=== PATIENT | male | born 1945 | race Caucasian/White ===

== ENCOUNTER → 2016-12-26 | Outpatient (CLI) | payer MEDICARE, OTHER ==
[~2016-12-26] MED LIST: METF500T PO
[2016-12-26 11:06] LABS: AUTOMATED NEUTROPHIL # 3.2 TH/MM3 (1.8-7.7); BASOPHIL % 0.7 % (0.0-2.0); EOSINOPHIL # 0.3 TH/MM3 (0-0.4); EOSINOPHIL % 5.2 % (0.0-4.0); HEMATOCRIT 44.3 % (39.0-51.0); HEMO FLAGS DIFF FINAL; LYMPH % 34.3 % (9.0-44.0); LYMPHOCYTE # 2.1 TH/MM3 (1.0-4.8); MEAN CELL VOLUME 90.1 FL (80.0-100.0); MEAN CORPUSCULAR HEMOGLOBIN 31.2 PG (27.0-34.0); MEAN CORPUSCULAR HGB CONC 34.7 % (32.0-36.0); MONO % 7.2 % (0.0-8.0); NEUT % 52.6 % (16.0-70.0); PLATELET COUNT 134 TH/MM3 (150-450); RED BLOOD COUNT 4.91 MIL/MM3 (4.50-5.90); RED CELL DISTRIBUTION WIDTH 12.8 % (11.6-17.2)
[2016-12-26 11:13] LABS: BLOOD, URINE NEG (NEG); GLUCOSE,URINE NEG (NEG); KETONE, URINE NEG (NEG); NITRITE,URINE NEG (NEG); PH, URINE 6.5 (5.0-8.5); URINE COLOR YELLOW (YELLW/STRAW)
[2016-12-26 11:20] LABS: COMMENT (UR) CULT NOT INDICATED; CULTURE IF INDICATED CULT NOT INDICATED
[2016-12-26 11:25] LABS: BICARBONATE 27.2 MEQ/L (21.0-32.0); POTASSIUM 3.9 MEQ/L (3.5-5.1)
--- NOTE | 2016-12-26 12:08 | RADRPT ---
EXAM DATE/TIME: 12/26/2016 11:14 [place] COMPARISON: No previous studies available for comparison. INDICATIONS : Evaluate for pneumonia, pneumothorax and communicable diseases. Pre-op knee surgery MEDICAL HISTORY : Diabetes mellitus type I. SURGICAL HISTORY : None. ENCOUNTER: Initial ACUITY: 1 day PAIN SCORE: 0/10 LOCATION: chest FINDINGS: PA and lateral views of the chest demonstrate the lungs to be symmetrically aerated without evidence of mass, infiltrate or effusion. The cardiomediastinal contours are unremarkable. Osseous structure s are intact. CONCLUSION: 1. No acute cardiopulmonary findings. Hugo Solares MD on December 26, 2016 at 12:06 Board Certified Radiologist. This report was verified electronically.
--- NOTE | 2016-12-26 14:33 | EKG ---
Date Performed: 12/26/2016 Time Performed: 10:17:28 PTAGE: 71 years EKG: Sinus rhythm WITH FIRST DEGREE AV BLOCK MARKED LEFT AXIS DEVIATION PATTERN CONSISTENT WITH PULMONARY DISEASE ABNO RMAL ECG NO PREVIOUS TRACING DOCTOR: Art Adam Interpretating Date/Time 12/26/2016 14:31:53
== END ==
LOC: CPRE 10:03
PROVIDERS: ATTEND Orthopaedic Surgery
DX: Z01.810 Encounter for preprocedural cardiovascular examination (principal); Z01.811 Encounter for preprocedural respiratory examination; Z01.812 Encounter for preprocedural laboratory examination; R94.31 Abnormal electrocardiogram [ECG] [EKG]; S83.232A Complex tear of medial meniscus, current injury, left knee, initial encounter; X58.XXXA Exposure to other specified factors, initial encounter
CPT/HCPCS: 36415; 71020; 80048; 81001; 85025; 85610; 93005

== ENCOUNTER 2017-01-29 07:33 | Day surgery (SDC) | payer MEDICARE, OTHER ==
[~2017-01-29] VITALS: Ht 175.3 cm; Wt 93.5 kg
[2017-01-29] MEDS ORDERED: IOHEXOL 350 MG/ML 100 ML BTL (for Cath Lab) OTHER ONE (07:34)
[2017-01-29] MEDS ORDERED: ASPIRIN 325 MG TAB PO SCH (08:00)
[2017-01-29] MEDS ORDERED: NS 1000P @30 MLS/HR (KVO) IV SCH (08:00)
[2017-01-29] MEDS ORDERED: TOPR25TA PO (08:08)
[2017-01-29 08:19] LABS: AUTOMATED NEUTROPHIL # 2.8 TH/MM3 (1.8-7.7); BASOPHIL # 0.1 TH/MM3 (0-0.2); BASOPHIL % 0.9 % (0.0-2.0); EOSINOPHIL # 0.4 TH/MM3 (0-0.4); EOSINOPHIL % 6.4 % (0.0-4.0); HEMATOCRIT 45.3 % (39.0-51.0); HEMOGLOBIN 15.8 GM/DL (13.0-17.0); LYMPH % 39.7 % (9.0-44.0); LYMPHOCYTE # 2.4 TH/MM3 (1.0-4.8); MEAN CELL VOLUME 89.2 FL (80.0-100.0); MEAN CORPUSCULAR HEMOGLOBIN 31.2 PG (27.0-34.0); MEAN CORPUSCULAR HGB CONC 34.9 % (32.0-36.0); MONO % 6.8 % (0.0-8.0); MONOCYTE # 0.4 TH/MM3 (0-0.9); NEUT % 46.2 % (16.0-70.0); PLATELET COUNT 136 TH/MM3 (150-450); RED BLOOD COUNT 5.08 MIL/MM3 (4.50-5.90); RED CELL DISTRIBUTION WIDTH 13.2 % (11.6-17.2); WHITE BLOOD COUNT 6.1 TH/MM3 (4.0-11.0)
[2017-01-29 08:21] VITALS: BP 147/112; PULSE 58; RESP 17; TEMP 98.8; O2SAT 97
[2017-01-29 08:28] LABS: PROTHROMBIN TIME - PATIENT 11.1 SEC (9.8-11.6)
[2017-01-29 08:35] LABS: BICARBONATE 25.7 MEQ/L (21.0-32.0); CREATININE 1.15 MG/DL (0.60-1.30)
[2017-01-29] MEDS ORDERED: HEPARIN-NS/PF INJ 1,000 ML ONE (09:51)
[2017-01-29] MEDS ORDERED: MIDAZOLAM HCL 2 MG/2 ML VIAL ONE (09:51)
[2017-01-29] MEDS ORDERED: HEPARIN SODIUM - IV 10,000 UNITS/10 ML VIAL ONE (09:53)
--- NOTE | 2017-01-29 11:04 | CATHPROC ---
[employer] HIS Report Study Information Study Number Admission Scheduled Start Study Start [id number] Jan 29 2017 7:33AM 01/29/2017 Jan 29 2017 9:48AM [place] [facility] Cardiac Catheterization Admit Source Facility Department Other [facility] - [facility] Geologist Physician and Clinical Staff Initial Francisco Rayo Senior Net Application Developer Adriana Simpson RN Recorder Erna Mireles,RT(R) Scrub Anibal, Etelvina,FIELD MAP TECHNICIAN TECH2 Procedures Performed Procedure Location (Site) Vessel Name Coronary Angiograms LCA Left Coronary Coronary Angiograms RCA Right Coronary L Heart Cath Wire insertion Fem Art (right) Femoral Art Equipment Time Hospice Fellow Description Size Mfg Part Number Used/Scraped TRANSDUCER, TRUWAVE [id number] 10:07 HOLLOWAY BRUNO * Used W/STOCKCOCK *[id number] *[id number] [id number] *[id number] [id number] *[id number] [id number] *[id number] [id number] *[id number] 10:07 VANCL IND[employer]RIES PACK, CCL CUSTOM * Used *[id number] 10:07 Tier 1 Performance MEDICAL SHEATH, FR5.5 PRELUDE 11CM FR 5 [id number] Used [id number] 10:07 Spectralmind WIRE, 3MMJ .035 180CM 180CM Used *[id number] 10:07 NAMIC MANIFOLD, 4 PORT * Used *[id number] 10:07 NYCOMED OMNIPAQUE, 350 MG, 150ML 150ML [id number] Used [id number] 10:07 On The Bill BLANKET,WARM AIR CCL * Used *[id number] History: Allergies Allergy Reaction No Known Allergies History: Risk Factors Family History of Hypertension Dyslipidemia Previous MA Previous Heart Failure Premature CAD Yes No No No No Prior Valve Prior PCI Prior CABG Surgery No No No Cerebrovascular Peripheral Artery Chronic Lung On Dialysis Diabetes Diabetes Therapy Disease Disease Disease No No No No Yes Oral History: Stress Tests Stress or Imaging Studies Performed Yes Standard Exercise Stress Test No Stress Echo No Stress Test SPECT Stress Test SPECT Result Yes Negative Stress Test CMR No Cardiac CTA Coronary Calcium Score No No History: Other Disease Selection Items HTN History: Other Current Smoker Yes Labs Hgb (g/dl) Hct (%) RBC (MIL/MM3) WBC (l/cumm) Platelets (thousands) 11.60-17.00 35.00-51.00 4.00-5.90 4.00-11.00 150.00-450.00 15.0 45 5 6.1 136 Glucose (mg/dl) BUN (mg/dl) Creatinine (mg/dl) BUN:Creatinine (1:x) 74.00-106.00 7.00-18.00 0.50-1.30 10.00-20.00 145 13 1.2 10.8 Na (meq/l) K (meq/l) 136.00-145.00 3.50-5.10 138 4 CPK-MB (ng/ML) 0.50-3.60 Not Drawn Medication Medication Total Dose (Bolus/Oral) Medication Total Dosage/Unit 1% XYLOCAINE 20 mL FENTANYL 50 mcg VERSED 0.5 mg Medications (Bolus/Oral) Medication Time Given Dosage/Unit Administered By Reason 01/29/2017 10:10:21 FENTANYL 50 mcg Adriana Simpson AM 50 mcg FENTANYL given in lab by Adriana Simpson, [place] via Peripheral IV. 01/29/2017 10:11:09 1% XYLOCAINE 20 mL Francisco Soto AM 20 mL 1% XYLOCAINE given in lab by Francisco Soto in Right Groin via Subcutaneous. 01/29/2017 10:11:12 VERSED 0.5 mg Adriana Simpson AM 0.5 mg VERSED given in lab by Adriana Simpson, [place] via Peripheral IV. Medication (Drip) Medication Time Given Dosage/Unit Concentration/Unit Diluent (ml) Solution IV Solutions 01/29/2017 9:56:14 AM 0 mL (IV) 500 NaCl .9 Patient arrived on IV Solutions in Left Forearm via Peripheral IV. Pump/Drip Flow = 20 ml/hr using Na Cl .9. Initial Case Assessment Cardiovascular HR Rhythm NIBP Chest Pain 75 reg 171/90 0 Edema Present Skin color Skin None Normal Warm Circulatory - Right Pulses Dorsalis Pedis Femoral 2 2 Scale (0,1,2,3,4,d) Circulatory - Left Pulses Dorsalis Pedis Femoral 2 2 Scale (0,1,2,3,4,d) Circulatory - Lower Extremities Color Lower Right Color Lower Left Normal Normal Neurological State Oriented to time-place- Alert Moves all extremities person Respiration - General Respiration Rate SpO2 (%) (B/min) 15 96 Final Case Assessment Cardiovascular HR Rhythm NIBP Chest Pain 56 REG 154/104 0 Edema Present Skin color Skin None Normal Warm Circulatory - Right Pulses Dorsalis Pedis Femoral 2 2 Scale (0,1,2,3,4,d) Circulatory - Left Pulses Dorsalis Pedis Femoral 2 2 Scale (0,1,2,3,4,d) Circulatory - Lower Extremities Color Lower Right Color Lower Left Normal Normal Neurological State Oriented to time-place- Alert Moves all extremities person Respiration - General Respiration Rate SpO2 (%) (B/min) 19 97 Chronological Log Time Study Chronological Log 9:48:05 Patient arrived via Bed. 9:48:06 Patient Name, D.O.B, / Armband Verified By R.N. 9:48:07 Consent signed by the physician and the patient and verified by the Mine Geologist staff. 9:48:07 Pre-op and post- op instructions given; patient acknowledges understanding of instructions. 9:48:08 Verbal Stimulation=2 Physical Stimulation=2 Airway=2 Respiration=2 TOTAL=8. (0=absent, 1=li mited, 2=present) 9:48:11 Patient has been NPO for Less than 6Hrs. 9:48:12 Skin Breakdown-NONE 9:48:13 Patient Warmer Placed on the Table. 9:56:03 A # 20 IV was noted in the Forearm (left). Grade = 0 9:56:14 Patient arrived on IV Solutions in Left Forearm via Peripheral IV. Pump/Drip Flow = 20 ml/h r using NaCl .9. 9:56:33 History and physical on the chart or being dictated. Assessment: Initial Case, HR=75 BPM, Rhythm=reg, MIIF=371/90 mmhg, Chest Pain=0, Edema=None, Co rosales=Normal, Skin = Warm Right Pulses: Norman Ped=2, Femoral=2 Left Pulses: Norman Ped=2, Femoral=2 9:56:33 Lower Right Extremities: Color=Normal Lower Left Extremities: Color=Normal Neurological: State=Alert, Ox3, MIRANDA Respiration: Resp=15 B/min, SpO2=96 % 9:56:36 Reference ECG taken Vitals capture started with the following parameters, Patient=Adult, Interval=2 min, Initial Pr uicnjr=386 mmHg, 9:56:41 Deflation Rate=5 mmHg, Cuff placed on Left Arm 9:57:58 HR=61 bpm, AHZZ=502/110 mmhg, SpO2=96.0 %, Resp=1 B/min, Pain=0, Lucas=10, Hdez=2 9:59:24 HR=64 bpm, LNGC=237/119 mmhg, SpO2=98.0 %, Resp=18 B/min, Pain=0, Lucas=10, Hdez=2 10:01:20 HR=62 bpm, BAYT=641/117 mmhg, SpO2=99.0 %, Resp=13 B/min, Pain=0, Lucas=10, Hdez=2 10:03:12 MD arrived. 10:03:16 Bilateral groins prepped with 2% chlorhexidine, and draped after a 3 minute waiting time. 10:03:21 HR=67 bpm, UMCX=929/109 mmhg, SpO2=98.0 %, Resp=10 B/min, Pain=0, Lucas=10, Hdez=2 10:04:57 Pressure channel 1 zeroed. 10:05:24 HR=69 bpm, EGWG=807/109 mmhg, SpO2=96.0 %, Resp=10 B/min, Pain=0, Lucas=10, Hdez=2 10:07:23 HR=68 bpm, NCET=519/108 mmhg, SpO2=98.0 %, Resp=10 B/min, Pain=0, Lucas=10, Hdez=2 10:09:22 HR=62 bpm, KUGS=907/105 mmhg, SpO2=95.0 %, Resp=10 B/min, Pain=0, Lucas=10, Hdez=2 10:10:21 50 mcg FENTANYL given in lab by Adriana Simpson, [place] via Peripheral IV. Time Out. Correct patient, correct procedure, correct physician, power injector not loaded with contrast with surgical 10:10:52 team present. Time Out Concurred by MD and individual staff in procedure. 10:10:59 Case Start 10:11:00 Verbal Stimulation=2 Physical Stimulation=2 Airway=2 Respiration=2 TOTAL=8. (0=absent, 1=li mited, 2=present) 10:11:09 20 mL 1% XYLOCAINE given in lab by Francisco Soto in Right Groin via Subcutaneous. 10:11:12 0.5 mg VERSED given in lab by Adriana Simpson, [place] via Peripheral IV. 10:11:21 HR=63 bpm, RSFX=997/122 mmhg, SpO2=96.0 %, Resp=10 B/min, Pain=0, Lucas=10, Hdez=2 10:13:23 HR=62 bpm, MDHY=309/110 mmhg, SpO2=97.0 %, Resp=12 B/min, Pain=0, Lucas=10, Hdez=2 10:14:50 Access site was Right Femoral Artery. MP KIT 10:14:56 A wire was inserted via Fem Art (right). 10:15:10 A SHEATH, FR5.5 PRELUDE 11CM FR 5 was advanced into the Fem Art (right) using the Percutane ous technique. 10:15:24 HR=62 bpm, MJBI=739/113 mmhg, SpO2=98.0 %, Resp=5 B/min, Pain=0, Lucas=10, Hdez=2 Recorded Pressure: Ao, HR=62, Condition=Condition 1 10:16:11 (Aorta) Ao 157/89/116 10:16:39 An injection in the Fem Art (right) was made through the SHEATH, FR5.5 PRELUDE 11CM FR 5. 10:17:23 HR=61 bpm, RIOY=665/105 mmhg, SpO2=95.0 %, Resp=9 B/min, Pain=0, Lucas=10, Hdez=2 A JR 4.0 INFINITI CATHETER FR 5 was advanced over a wire. OMNIPAQUE, 350 MG, 150ML 150ML was us ed for 10:17:54 injections. 10:19:22 HR=60 bpm, PMXJ=339/103 mmhg, SpO2=95.0 %, Resp=9 B/min, Pain=0, Lucas=10, Hdez=2 Recorded Pressure: LV, Ao, HR=60, Condition=Condition 1 10:19:27 (Left Ventricle) LV 144/29/27, (Aorta) Ao 144/88/112 10:19:58 The RCA was injected and visualized at various angles. OMNIPAQUE, 350 MG, 150ML 150ML used . 10:21:21 HR=61 bpm, COTS=952/106 mmhg, SpO2=94.0 %, Resp=7 B/min, Pain=0, Lucas=10, Hdez=2 After removing the current catheter a JL 5.0 INFINITI CATHETER FR 5 was advanced over a WIRE, 3 MMJ .035 180CM 10:22:04 180CM. 10:23:21 HR=60 bpm, VOFS=796/105 mmhg, SpO2=94.0 %, Resp=5 B/min After removing the current catheter a JL 6.0 INFINITI CATHETER FR 5 was advanced over a WIRE, 3 MMJ .035 180CM 10:23:22 180CM. 10:25:22 HR=59 bpm, OKSB=549/102 mmhg, SpO2=94.0 %, Resp=10 B/min, Pain=0, Lucas=10, Hdez=2 10:26:24 A WIRE, 3MMJ .035 180CM 180CM was inserted via Fem Art (right). 10:27:21 HR=58 bpm, ZTOV=847/100 mmhg, SpO2=93.0 %, Resp=10 B/min, Pain=0, Lucas=10, Hdez=2 10:29:24 HR=58 bpm, DJGL=723/101 mmhg, SpO2=94.0 %, Resp=11 B/min, Lucas=10 After removing the current catheter a MPA-2 INFINITI CATHETER FR 5 was advanced over a WIRE, 3M MJ .035 180CM 10:29:58 180CM. 10:31:25 HR=56 bpm, RPND=110/102 mmhg, SpO2=94.0 %, Resp=12 B/min, Lucas=10 10:33:21 The LCA was injected and visualized at various angles. OMNIPAQUE, 350 MG, 150ML 150ML used . 10:33:22 HR=55 bpm, MFMC=676/104 mmhg, SpO2=94.0 %, Resp=11 B/min, Pain=0, Lucas=10 After removing the current catheter a PIGTAIL ANG. INFINITI CATHETER FR 5 was advanced over a W PATI, 3MMJ .035 10:35:15 180CM 180CM. 10:35:22 HR=56 bpm, BUDL=689/104 mmhg, SpO2=94.0 %, Resp=13 B/min, Pain=0, Lucas=10 10:37:21 HR=58 bpm, VUIO=849/105 mmhg, SpO2=95.0 %, Resp=13 B/min, Pain=0, Lucas=10 10:38:15 Catheter was removed 10:39:24 HR=56 bpm, NZCG=253/104 mmhg, SpO2=95.0 %, Resp=3 B/min, Pain=0, Lucas=10, Hdez=2 10:39:38 Sheath removed; pressure applied to access site. T ANIBAL Assessment: Final Case, HR=56 BPM, Rhythm=REG, AGKR=683/104 mmhg, Chest Pain=0, Edema=None, Color=Normal, Skin = Warm Right Pulses: Norman Ped=2, Femoral=2 Left Pulses: Norman Ped=2, Femoral=2 10:39:45 Lower Right Extremities: Color=Normal Lower Left Extremities: Color=Normal Neurological: State=Alert, Ox3, MIRANDA Respiration: Resp=19 B/min, SpO2=97 % 10:40:33 Catheter(s) removed without difficulty 10:40:37 Case End 10:40:39 Sterile dressing applied to site 10:40:40 No case complications noted. 10:40:44 Cine recording checked. 10:41:23 HR=55 bpm, VIZQ=665/102 mmhg, SpO2=96.0 %, Resp=10 B/min, Pain=0, Lucas=10, Hdez=2 10:43:24 HR=58 bpm, BROM=424/112 mmhg, SpO2=96.0 %, Resp=14 B/min, Pain=0, Lucas=10, Hdez=2 10:45:25 HR=56 bpm, WEZV=586/125 mmhg, SpO2=96.0 %, Resp=22 B/min, Pain=0, Lucas=10, Hdez=2 10:46:46 Bedside Report will be given. 10:46:49 Contrast Scanned 10:47:19 A Left Heart Cath was performed. 10:47:25 HR=58 bpm, JVQW=534/115 mmhg, SpO2=96.0 %, Resp=8 B/min, Pain=0, Lucas=10, Hdez=2 10:50:07 HR=58 bpm, JCTA=697/110 mmhg, SpO2=96.0 %, Resp=14 B/min, Pain=0, Lucas=10, Hdez=2 10:51:29 HR=56 bpm, PZDR=784/113 mmhg, SpO2=96.0 %, Resp=16 B/min, Pain=0, Lucas=10, Hdez=2 10:53:28 HR=56 bpm, FGCM=735/107 mmhg, SpO2=97.0 %, Resp=16 B/min, Pain=0, Lucas=10, Hdez=2 10:55:21 HR=56 bpm, OAPY=615/108 mmhg, SpO2=98.0 %, Resp=10 B/min, Pain=0, Lucas=10, Hdez=2 10:57:23 HR=54 bpm, TMNS=034/106 mmhg, SpO2=98.0 %, Resp=14 B/min, Pain=0, Lucas=10, Hdez=2 10:59:51 Sheath removed; pressure applied to access site. 10:59:56 Case End 10:59:59 Sterile dressing applied to site 11:00:06 No case complications noted. 11:00:11 HR=52 bpm, HAAD=814/112 mmhg, SpO2=98.0 %, Resp=11 B/min, Pain=0, Hdez=2 11:00:42 Cine recording checked. 11:01:41 Bedside Report will be given. 11:01:44 Holding Area notified of successful diagnostic cath. End Study - Contrast Media Used In Study Contrast Total Opened (mL) Total Used (mL) Total Wasted (mL) Omnipaque 60 60 0 End Study - Maximum Contrast Load Max Contrast Load (mL) 389.6 End Study - Radiation Exposure Fluoro Time (minutes) 10.1 End Study - Sheaths Sheaths Pulled By Sheath Hold Time (min) Etelvina Barnett End Study - Patient Disposition Complications Transferred To Interventional Outcome No Outpatient Bed No attempt made
--- NOTE | 2017-01-29 11:04 | CATHPROC ---
Contrib HIS Report Study Information Study Number Admission Scheduled Start Study Start [id number] Jan 29 2017 7:33AM 01/29/2017 Jan 29 2017 9:48AM [place] [facility] Catheterization Admit Source Facility Department Other [facility] - Air Export Operations Agent Physician and Clinical Staff Initial Francisco Rayo [employer] Products Viewer Adriana Simpson RN Recorder Erna Mierles,RT(R) Scrub Anibal, Etelvina,CAR KNOCKER TECH2 Procedures Performed Procedure Location (Site) Vessel Name Coronary Angiograms LCA Left Coronary Coronary Angiograms RCA Right Coronary L Heart Cath Wire insertion Fem Art (right) Femoral Art Equipment Time Ship Design Teacher Description Size Mfg Part Number Used/Scraped TRANSDUCER, TRUWAVE [id number] 10:07 HOLLOWAY BRUNO * Used W/STOCKCOCK *[id number] 534-524T *[id number] 534-521T *[id number] [id number] *[id number] [id number] *[id number] [id number] *[id number] 10:07 [employer]ES PACK, CCL CUSTOM * Used *[id number] 10:07 [employer] MEDICAL SHEATH, FR5.5 PRELUDE 11CM FR 5 [id number] Used [id number] 10:07 [employer] WIRE, 3MMJ .035 180CM 180CM Used *[id number] 10:07 [employer] MANIFOLD, 4 PORT * Used *[id number] 10:07 [employer] OMNIPAQUE, 350 MG, 150ML 150ML [id number] Used [id number] 10:07 [place] [employer] BLANKET,WARM AIR CCL * Used *[id number] History: Allergies Allergy Reaction No Known Allergies History: Risk Factors Family History of Hypertension Dyslipidemia Previous [place] Previous Heart Failure Premature CAD Yes No No No No Prior Valve Prior PCI Prior CABG Surgery No No No Cerebrovascular Peripheral Artery Chronic Lung On Dialysis Diabetes Diabetes Therapy Disease Disease Disease No No No No Yes Oral History: Stress Tests Stress or Imaging Studies Performed Yes Standard Exercise Stress Test No Stress Echo No Stress Test SPECT Stress Test SPECT Result Yes Negative Stress Test CMR No Cardiac CTA Coronary Calcium Score No No History: Other Disease Selection Items HTN History: Other Current Smoker Yes Labs Hgb (g/dl) Hct (%) RBC (MIL/MM3) WBC (l/cumm) Platelets (thousands) 11.60-17.00 35.00-51.00 4.00-5.90 4.00-11.00 150.00-450.00 15.0 45 5 6.1 136 Glucose (mg/dl) BUN (mg/dl) Creatinine (mg/dl) BUN:Creatinine (1:x) 74.00-106.00 7.00-18.00 0.50-1.30 10.00-20.00 145 13 1.2 10.8 Na (meq/l) K (meq/l) 136.00-145.00 3.50-5.10 138 4 CPK-MB (ng/ML) 0.50-3.60 Not Drawn Medication Medication Total Dose (Bolus/Oral) Medication Total Dosage/Unit 1% XYLOCAINE 20 mL FENTANYL 50 mcg VERSED 0.5 mg Medications (Bolus/Oral) Medication Time Given Dosage/Unit Administered By Reason 01/29/2017 10:10:21 FENTANYL 50 mcg Adriana Simpson AM 50 mcg FENTANYL given in lab by Adriana Simpson, MILTON via Peripheral IV. 01/29/2017 10:11:09 1% XYLOCAINE 20 mL Francisco Soto AM 20 mL 1% XYLOCAINE given in lab by Francisco Soto in Right Groin via Subcutaneous. 01/29/2017 10:11:12 VERSED 0.5 mg Adriana Simpson AM 0.5 mg VERSED given in lab by Adriana Simpson, [place]TON via Peripheral IV. Medication (Drip) Medication Time Given Dosage/Unit Concentration/Unit Diluent (ml) Solution IV Solutions 01/29/2017 9:56:14 AM 0 mL (IV) 500 NaCl .9 Patient arrived on IV Solutions in Left Forearm via Peripheral IV. Pump/Drip Flow = 20 ml/hr using Na Cl .9. Initial Case Assessment Cardiovascular HR Rhythm NIBP Chest Pain 75 reg 171/90 0 Edema Present Skin color Skin None Normal Warm Circulatory - Right Pulses Dorsalis Pedis Femoral 2 2 Scale (0,1,2,3,4,d) Circulatory - Left Pulses Dorsalis Pedis Femoral 2 2 Scale (0,1,2,3,4,d) Circulatory - Lower Extremities Color Lower Right Color Lower Left Normal Normal Neurological State Oriented to time-place- Alert Moves all extremities person Respiration - General Respiration Rate SpO2 (%) (B/min) 15 96 Final Case Assessment Cardiovascular HR Rhythm NIBP Chest Pain 56 REG 154/104 0 Edema Present Skin color Skin None Normal Warm Circulatory - Right Pulses Dorsalis Pedis Femoral 2 2 Scale (0,1,2,3,4,d) Circulatory - Left Pulses Dorsalis Pedis Femoral 2 2 Scale (0,1,2,3,4,d) Circulatory - Lower Extremities Color Lower Right Color Lower Left Normal Normal Neurological State Oriented to time-place- Alert Moves all extremities person Respiration - General Respiration Rate SpO2 (%) (B/min) 19 97 Chronological Log Time Study Chronological Log 9:48:05 Patient arrived via Bed. 9:48:06 Patient Name, D.O.B, / Armband Verified By R.N. 9:48:07 Consent signed by the physician and the patient and verified by the Air Export Operations Agent staff. 9:48:07 Pre-op and post- op instructions given; patient acknowledges understanding of instructions. 9:48:08 Verbal Stimulation=2 Physical Stimulation=2 Airway=2 Respiration=2 TOTAL=8. (0=absent, 1=li mited, 2=present) 9:48:11 Patient has been NPO for Less than 6Hrs. 9:48:12 Skin Breakdown-NONE 9:48:13 Patient Warmer Placed on the Table. 9:56:03 A # 20 IV was noted in the Forearm (left). Grade = 0 9:56:14 Patient arrived on IV Solutions in Left Forearm via Peripheral IV. Pump/Drip Flow = 20 ml/h r using NaCl .9. 9:56:33 History and physical on the chart or being dictated. Assessment: Initial Case, HR=75 BPM, Rhythm=reg, XSDW=168/90 mmhg, Chest Pain=0, Edema=None, Co rosales=Normal, Skin = Warm Right Pulses: Norman Ped=2, Femoral=2 Left Pulses: Norman Ped=2, Femoral=2 9:56:33 Lower Right Extremities: Color=Normal Lower Left Extremities: Color=Normal Neurological: State=Alert, Ox3, MIRANDA Respiration: Resp=15 B/min, SpO2=96 % 9:56:36 Reference ECG taken Vitals capture started with the following parameters, Patient=Adult, Interval=2 min, Initial Pr uydoxj=304 mmHg, 9:56:41 Deflation Rate=5 mmHg, Cuff placed on Left Arm 9:57:58 HR=61 bpm, KUCT=962/110 mmhg, SpO2=96.0 %, Resp=1 B/min, Pain=0, Lucas=10, Hdez=2 9:59:24 HR=64 bpm, YBSS=385/119 mmhg, SpO2=98.0 %, Resp=18 B/min, Pain=0, Lucas=10, Hdez=2 10:01:20 HR=62 bpm, XHAX=402/117 mmhg, SpO2=99.0 %, Resp=13 B/min, Pain=0, Lucas=10, Hdez=2 10:03:12 MD arrived. 10:03:16 Bilateral groins prepped with 2% chlorhexidine, and draped after a 3 minute waiting time. 10:03:21 HR=67 bpm, ERLJ=684/109 mmhg, SpO2=98.0 %, Resp=10 B/min, Pain=0, Lucas=10, Hdez=2 10:04:57 Pressure channel 1 zeroed. 10:05:24 HR=69 bpm, BKLE=062/109 mmhg, SpO2=96.0 %, Resp=10 B/min, Pain=0, Lucas=10, Hdez=2 10:07:23 HR=68 bpm, OQUG=234/108 mmhg, SpO2=98.0 %, Resp=10 B/min, Pain=0, Lucas=10, Hdez=2 10:09:22 HR=62 bpm, DUVX=700/105 mmhg, SpO2=95.0 %, Resp=10 B/min, Pain=0, Lucas=10, Hdez=2 10:10:21 50 mcg FENTANYL given in lab by Adriana Simpson, MILTON via Peripheral IV. Time Out. Correct patient, correct procedure, correct physician, power injector not loaded with contrast with surgical 10:10:52 team present. Time Out Concurred by MD and individual staff in procedure. 10:10:59 Case Start 10:11:00 Verbal Stimulation=2 Physical Stimulation=2 Airway=2 Respiration=2 TOTAL=8. (0=absent, 1=li mited, 2=present) 10:11:09 20 mL 1% XYLOCAINE given in lab by Francisco Soto in Right Groin via Subcutaneous. 10:11:12 0.5 mg VERSED given in lab by Adriana Simpson, MILTON via Peripheral IV. 10:11:21 HR=63 bpm, ZBFP=790/122 mmhg, SpO2=96.0 %, Resp=10 B/min, Pain=0, Lucas=10, Hdez=2 10:13:23 HR=62 bpm, QSMN=195/110 mmhg, SpO2=97.0 %, Resp=12 B/min, Pain=0, Lucas=10, Hdez=2 10:14:50 Access site was Right Femoral Artery. MP KIT 10:14:56 A wire was inserted via Fem Art (right). 10:15:10 A SHEATH, FR5.5 PRELUDE 11CM FR 5 was advanced into the Fem Art (right) using the Percutane ous technique. 10:15:24 HR=62 bpm, YHAD=582/113 mmhg, SpO2=98.0 %, Resp=5 B/min, Pain=0, Lucas=10, Hdez=2 Recorded Pressure: Ao, HR=62, Condition=Condition 1 10:16:11 (Aorta) Ao 157/89/116 10:16:39 An injection in the Fem Art (right) was made through the SHEATH, FR5.5 PRELUDE 11CM FR 5. 10:17:23 HR=61 bpm, BNCG=585/105 mmhg, SpO2=95.0 %, Resp=9 B/min, Pain=0, Lucas=10, Hdez=2 A JR 4.0 INFINITI CATHETER FR 5 was advanced over a wire. OMNIPAQUE, 350 MG, 150ML 150ML was us ed for 10:17:54 injections. 10:19:22 HR=60 bpm, IAAS=104/103 mmhg, SpO2=95.0 %, Resp=9 B/min, Pain=0, Lucas=10, Hdez=2 Recorded Pressure: LV, Ao, HR=60, Condition=Condition 1 10:19:27 (Left Ventricle) LV 144/29/27, (Aorta) Ao 144/88/112 10:19:58 The RCA was injected and visualized at various angles. OMNIPAQUE, 350 MG, 150ML 150ML used . 10:21:21 HR=61 bpm, VMTG=475/106 mmhg, SpO2=94.0 %, Resp=7 B/min, Pain=0, Lucsa=10, Hdez=2 After removing the current catheter a JL 5.0 INFINITI CATHETER FR 5 was advanced over a WIRE, 3 MMJ .035 180CM 10:22:04 180CM. 10:23:21 HR=60 bpm, KJEV=635/105 mmhg, SpO2=94.0 %, Resp=5 B/min After removing the current catheter a JL 6.0 INFINITI CATHETER FR 5 was advanced over a WIRE, 3 MMJ .035 180CM 10:23:22 180CM. 10:25:22 HR=59 bpm, UHBH=498/102 mmhg, SpO2=94.0 %, Resp=10 B/min, Pain=0, Lucas=10, Hdez=2 10:26:24 A WIRE, 3MMJ .035 180CM 180CM was inserted via Fem Art (right). 10:27:21 HR=58 bpm, WSXI=739/100 mmhg, SpO2=93.0 %, Resp=10 B/min, Pain=0, Lucas=10, Hdez=2 10:29:24 HR=58 bpm, QADQ=134/101 mmhg, SpO2=94.0 %, Resp=11 B/min, Lucas=10 After removing the current catheter a MPA-2 INFINITI CATHETER FR 5 was advanced over a WIRE, 3M MJ .035 180CM 10:29:58 180CM. 10:31:25 HR=56 bpm, TGNJ=375/102 mmhg, SpO2=94.0 %, Resp=12 B/min, Lucas=10 10:33:21 The LCA was injected and visualized at various angles. OMNIPAQUE, 350 MG, 150ML 150ML used . 10:33:22 HR=55 bpm, SHMK=541/104 mmhg, SpO2=94.0 %, Resp=11 B/min, Pain=0, Lucas=10 After removing the current catheter a PIGTAIL ANG. INFINITI CATHETER FR 5 was advanced over a W PATI, 3MMJ .035 10:35:15 180CM 180CM. 10:35:22 HR=56 bpm, OBHI=642/104 mmhg, SpO2=94.0 %, Resp=13 B/min, Pain=0, Lucas=10 10:37:21 HR=58 bpm, MFPD=883/105 mmhg, SpO2=95.0 %, Resp=13 B/min, Pain=0, Lucas=10 10:38:15 Catheter was removed 10:39:24 HR=56 bpm, YKKZ=722/104 mmhg, SpO2=95.0 %, Resp=3 B/min, Pain=0, Lucas=10, Hdez=2 10:39:38 Sheath removed; pressure applied to access site. T ANIBAL Assessment: Final Case, HR=56 BPM, Rhythm=REG, QZLK=538/104 mmhg, Chest Pain=0, Edema=None, Color=Normal, Skin = Warm Right Pulses: Norman Ped=2, Femoral=2 Left Pulses: Norman Ped=2, Femoral=2 10:39:45 Lower Right Extremities: Color=Normal Lower Left Extremities: Color=Normal Neurological: State=Alert, Ox3, MIRANDA Respiration: Resp=19 B/min, SpO2=97 % 10:40:33 Catheter(s) removed without difficulty 10:40:37 Case End 10:40:39 Sterile dressing applied to site 10:40:40 No case complications noted. 10:40:44 Cine recording checked. 10:41:23 HR=55 bpm, KEZM=345/102 mmhg, SpO2=96.0 %, Resp=10 B/min, Pain=0, Lucas=10, Hdez=2 10:43:24 HR=58 bpm, NDTT=990/112 mmhg, SpO2=96.0 %, Resp=14 B/min, Pain=0, Lucas=10, Hdez=2 10:45:25 HR=56 bpm, QTPO=378/125 mmhg, SpO2=96.0 %, Resp=22 B/min, Pain=0, Lucas=10, Hdez=2 10:46:46 Bedside Report will be given. 10:46:49 Contrast Scanned 10:47:19 A Left Heart Cath was performed. 10:47:25 HR=58 bpm, TUWP=885/115 mmhg, SpO2=96.0 %, Resp=8 B/min, Pain=0, Lucas=10, Hdez=2 10:50:07 HR=58 bpm, BKXQ=269/110 mmhg, SpO2=96.0 %, Resp=14 B/min, Pain=0, Lucas=10, Hdez=2 10:51:29 HR=56 bpm, JWXQ=846/113 mmhg, SpO2=96.0 %, Resp=16 B/min, Pain=0, Lucas=10, Hdez=2 10:53:28 HR=56 bpm, WIZB=726/107 mmhg, SpO2=97.0 %, Resp=16 B/min, Pain=0, Lucas=10, Hdez=2 10:55:21 HR=56 bpm, VYAY=152/108 mmhg, SpO2=98.0 %, Resp=10 B/min, Pain=0, Lucas=10, Hdez=2 10:57:23 HR=54 bpm, FSWM=801/106 mmhg, SpO2=98.0 %, Resp=14 B/min, Pain=0, Lucas=10, Hdez=2 10:59:51 Sheath removed; pressure applied to access site. 10:59:56 Case End 10:59:59 Sterile dressing applied to site 11:00:06 No case complications noted. 11:00:11 HR=52 bpm, AMBH=561/112 mmhg, SpO2=98.0 %, Resp=11 B/min, Pain=0, Hdez=2 11:00:42 Cine recording checked. 11:01:41 Bedside Report will be given. 11:01:44 Holding Area notified of successful diagnostic cath. End Study - Contrast Media Used In Study Contrast Total Opened (mL) Total Used (mL) Total Wasted (mL) Omnipaque 60 60 0 End Study - Maximum Contrast Load Max Contrast Load (mL) 389.6 End Study - Radiation Exposure Fluoro Time (minutes) 10.1 End Study - Sheaths Sheaths Pulled By Sheath Hold Time (min) Etelvina Barnett End Study - Patient Disposition Complications Transferred To Interventional Outcome No Outpatient Bed No attempt made
--- NOTE | 2017-01-29 11:04 | CATHPROC ---
Journalism Online HIS Report Study Information Study Number Admission Scheduled Start Study Start [id number] Jan 29 2017 7:33AM 01/29/2017 Jan 29 2017 9:48AM [facility] Cardiac Catheterization Admit Source Facility Department Other [facility] - Processing Spec Physician and Clinical Staff Initial Francisco Rayo Product Safety Expert Adriana Simpson RN Recorder Erna Mireles,RT(R) Scrub Anibal, Etelvina,BUILDING SUPERINTENDENT TECH2 Procedures Performed Procedure Location (Site) Vessel Name Coronary Angiograms LCA Left Coronary Coronary Angiograms RCA Right Coronary L Heart Cath Wire insertion Fem Art (right) Femoral Art Equipment Time Radiology Physician Description Size Mfg Part Number Used/Scraped TRANSDUCER, TRUWAVE [id number] 10:07 HOLLOWAY BRUNO * Used W/STOCKCOCK *[id number] [id number] *[id number] [id number] *[id number] [id number] *[id number] 534-552S *[id number] 534-552S *[id number] 10:07 Pheedo INDUSTRIES PACK, CCL CUSTOM * Used *[id number] 10:07 Junar MEDICAL SHEATH, FR5.5 PRELUDE 11CM FR 5 [id number] Used [id number] 10:07 PartTec WIRE, 3MMJ .035 180CM 180CM Used *[id number] 10:07 NAMIC MANIFOLD, 4 PORT * Used *[id number] 10:07 NYCOMED OMNIPAQUE, 350 MG, 150ML 150ML [id number] Used [id number] 10:07 Fyusion BLANKET,WARM AIR CCL * Used *[id number] History: Allergies Allergy Reaction No Known Allergies History: Risk Factors Family History of Hypertension Dyslipidemia Previous MD Previous Heart Failure Premature CAD Yes No No No No Prior Valve Prior PCI Prior CABG Surgery No No No Cerebrovascular Peripheral Artery Chronic Lung On Dialysis Diabetes Diabetes Therapy Disease Disease Disease No No No No Yes Oral History: Stress Tests Stress or Imaging Studies Performed Yes Standard Exercise Stress Test No Stress Echo No Stress Test SPECT Stress Test SPECT Result Yes Negative Stress Test CMR No Cardiac CTA Coronary Calcium Score No No History: Other Disease Selection Items HTN History: Other Current Smoker Yes Labs Hgb (g/dl) Hct (%) RBC (MIL/MM3) WBC (l/cumm) Platelets (thousands) 11.60-17.00 35.00-51.00 4.00-5.90 4.00-11.00 150.00-450.00 15.0 45 5 6.1 136 Glucose (mg/dl) BUN (mg/dl) Creatinine (mg/dl) BUN:Creatinine (1:x) 74.00-106.00 7.00-18.00 0.50-1.30 10.00-20.00 145 13 1.2 10.8 Na (meq/l) K (meq/l) 136.00-145.00 3.50-5.10 138 4 CPK-MB (ng/ML) 0.50-3.60 Not Drawn Medication Medication Total Dose (Bolus/Oral) Medication Total Dosage/Unit 1% XYLOCAINE 20 mL FENTANYL 50 mcg VERSED 0.5 mg Medications (Bolus/Oral) Medication Time Given Dosage/Unit Administered By Reason 01/29/2017 10:10:21 FENTANYL 50 mcg Adriana Simpson AM 50 mcg FENTANYL given in lab by Adriana Simpson, MILTON via Peripheral IV. 01/29/2017 10:11:09 1% XYLOCAINE 20 mL Francisco Soto AM 20 mL 1% XYLOCAINE given in lab by Francisco Soto in Right Groin via Subcutaneous. 01/29/2017 10:11:12 VERSED 0.5 mg Adriana Simpson AM 0.5 mg VERSED given in lab by Adriana Simpson, MILTON via Peripheral IV. Medication (Drip) Medication Time Given Dosage/Unit Concentration/Unit Diluent (ml) Solution IV Solutions 01/29/2017 9:56:14 AM 0 mL (IV) 500 NaCl .9 Patient arrived on IV Solutions in Left Forearm via Peripheral IV. Pump/Drip Flow = 20 ml/hr using Na Cl .9. Initial Case Assessment Cardiovascular HR Rhythm NIBP Chest Pain 75 reg 171/90 0 Edema Present Skin color Skin None Normal Warm Circulatory - Right Pulses Dorsalis Pedis Femoral 2 2 Scale (0,1,2,3,4,d) Circulatory - Left Pulses Dorsalis Pedis Femoral 2 2 Scale (0,1,2,3,4,d) Circulatory - Lower Extremities Color Lower Right Color Lower Left Normal Normal Neurological State Oriented to time-place- Alert Moves all extremities person Respiration - General Respiration Rate SpO2 (%) (B/min) 15 96 Final Case Assessment Cardiovascular HR Rhythm NIBP Chest Pain 56 REG 154/104 0 Edema Present Skin color Skin None Normal Warm Circulatory - Right Pulses Dorsalis Pedis Femoral 2 2 Scale (0,1,2,3,4,d) Circulatory - Left Pulses Dorsalis Pedis Femoral 2 2 Scale (0,1,2,3,4,d) Circulatory - Lower Extremities Color Lower Right Color Lower Left Normal Normal Neurological State Oriented to time-place- Alert Moves all extremities person Respiration - General Respiration Rate SpO2 (%) (B/min) 19 97 Chronological Log Time Study Chronological Log 9:48:05 Patient arrived via Bed. 9:48:06 Patient Name, D.O.B, / Armband Verified By R.N. 9:48:07 Consent signed by the physician and the patient and verified by the Processing Spec staff. 9:48:07 Pre-op and post- op instructions given; patient acknowledges understanding of instructions. 9:48:08 Verbal Stimulation=2 Physical Stimulation=2 Airway=2 Respiration=2 TOTAL=8. (0=absent, 1=li mited, 2=present) 9:48:11 Patient has been NPO for Less than 6Hrs. 9:48:12 Skin Breakdown-NONE 9:48:13 Patient Warmer Placed on the Table. 9:56:03 A # 20 IV was noted in the Forearm (left). Grade = 0 9:56:14 Patient arrived on IV Solutions in Left Forearm via Peripheral IV. Pump/Drip Flow = 20 ml/h r using NaCl .9. 9:56:33 History and physical on the chart or being dictated. Assessment: Initial Case, HR=75 BPM, Rhythm=reg, THMR=320/90 mmhg, Chest Pain=0, Edema=None, Co rosales=Normal, Skin = Warm Right Pulses: Norman Ped=2, Femoral=2 Left Pulses: Norman Ped=2, Femoral=2 9:56:33 Lower Right Extremities: Color=Normal Lower Left Extremities: Color=Normal Neurological: State=Alert, Ox3, MIRANDA Respiration: Resp=15 B/min, SpO2=96 % 9:56:36 Reference ECG taken Vitals capture started with the following parameters, Patient=Adult, Interval=2 min, Initial Pr uhgnoy=338 mmHg, 9:56:41 Deflation Rate=5 mmHg, Cuff placed on Left Arm 9:57:58 HR=61 bpm, KRHV=692/110 mmhg, SpO2=96.0 %, Resp=1 B/min, Pain=0, Lucas=10, Hdez=2 9:59:24 HR=64 bpm, DQZY=766/119 mmhg, SpO2=98.0 %, Resp=18 B/min, Pain=0, Lucas=10, Hdez=2 10:01:20 HR=62 bpm, NSUI=397/117 mmhg, SpO2=99.0 %, Resp=13 B/min, Pain=0, Lucas=10, Hdez=2 10:03:12 MD arrived. 10:03:16 Bilateral groins prepped with 2% chlorhexidine, and draped after a 3 minute waiting time. 10:03:21 HR=67 bpm, HZWS=488/109 mmhg, SpO2=98.0 %, Resp=10 B/min, Pain=0, Lucas=10, Hdez=2 10:04:57 Pressure channel 1 zeroed. 10:05:24 HR=69 bpm, WVPF=196/109 mmhg, SpO2=96.0 %, Resp=10 B/min, Pain=0, Lucas=10, Hdez=2 10:07:23 HR=68 bpm, TNMC=714/108 mmhg, SpO2=98.0 %, Resp=10 B/min, Pain=0, Lucas=10, Hdez=2 10:09:22 HR=62 bpm, GVWX=617/105 mmhg, SpO2=95.0 %, Resp=10 B/min, Pain=0, Lucas=10, Hdez=2 10:10:21 50 mcg FENTANYL given in lab by Adriana Simpson, MILTON via Peripheral IV. Time Out. Correct patient, correct procedure, correct physician, power injector not loaded with contrast with surgical 10:10:52 team present. Time Out Concurred by MD and individual staff in procedure. 10:10:59 Case Start 10:11:00 Verbal Stimulation=2 Physical Stimulation=2 Airway=2 Respiration=2 TOTAL=8. (0=absent, 1=li mited, 2=present) 10:11:09 20 mL 1% XYLOCAINE given in lab by Francisco Soto in Right Groin via Subcutaneous. 10:11:12 0.5 mg VERSED given in lab by Adriana Simpson, MILTON via Peripheral IV. 10:11:21 HR=63 bpm, FKVE=966/122 mmhg, SpO2=96.0 %, Resp=10 B/min, Pain=0, Lucas=10, Hdez=2 10:13:23 HR=62 bpm, MAWH=073/110 mmhg, SpO2=97.0 %, Resp=12 B/min, Pain=0, Lucas=10, Hdez=2 10:14:50 Access site was Right Femoral Artery. MP KIT 10:14:56 A wire was inserted via Fem Art (right). 10:15:10 A SHEATH, FR5.5 PRELUDE 11CM FR 5 was advanced into the Fem Art (right) using the Percutane ous technique. 10:15:24 HR=62 bpm, QFTM=774/113 mmhg, SpO2=98.0 %, Resp=5 B/min, Pain=0, Lucas=10, Hdez=2 Recorded Pressure: Ao, HR=62, Condition=Condition 1 10:16:11 (Aorta) Ao 157/89/116 10:16:39 An injection in the Fem Art (right) was made through the SHEATH, FR5.5 PRELUDE 11CM FR 5. 10:17:23 HR=61 bpm, WJKL=528/105 mmhg, SpO2=95.0 %, Resp=9 B/min, Pain=0, Lucas=10, Hdez=2 A JR 4.0 INFINITI CATHETER FR 5 was advanced over a wire. OMNIPAQUE, 350 MG, 150ML 150ML was us ed for 10:17:54 injections. 10:19:22 HR=60 bpm, ANMX=935/103 mmhg, SpO2=95.0 %, Resp=9 B/min, Pain=0, Lucas=10, Hdez=2 Recorded Pressure: LV, Ao, HR=60, Condition=Condition 1 10:19:27 (Left Ventricle) LV 144/29/27, (Aorta) Ao 144/88/112 10:19:58 The RCA was injected and visualized at various angles. OMNIPAQUE, 350 MG, 150ML 150ML used . 10:21:21 HR=61 bpm, CJSR=293/106 mmhg, SpO2=94.0 %, Resp=7 B/min, Pain=0, Lucas=10, Hdez=2 After removing the current catheter a JL 5.0 INFINITI CATHETER FR 5 was advanced over a WIRE, 3 MMJ .035 180CM 10:22:04 180CM. 10:23:21 HR=60 bpm, BNJV=132/105 mmhg, SpO2=94.0 %, Resp=5 B/min After removing the current catheter a JL 6.0 INFINITI CATHETER FR 5 was advanced over a WIRE, 3 MMJ .035 180CM 10:23:22 180CM. 10:25:22 HR=59 bpm, HUGD=712/102 mmhg, SpO2=94.0 %, Resp=10 B/min, Pain=0, Lucas=10, Hdez=2 10:26:24 A WIRE, 3MMJ .035 180CM 180CM was inserted via Fem Art (right). 10:27:21 HR=58 bpm, YIPU=853/100 mmhg, SpO2=93.0 %, Resp=10 B/min, Pain=0, Lucas=10, Hdez=2 10:29:24 HR=58 bpm, ICBV=518/101 mmhg, SpO2=94.0 %, Resp=11 B/min, Lucas=10 After removing the current catheter a MPA-2 INFINITI CATHETER FR 5 was advanced over a WIRE, 3M MJ .035 180CM 10:29:58 180CM. 10:31:25 HR=56 bpm, IRIM=576/102 mmhg, SpO2=94.0 %, Resp=12 B/min, Lucas=10 10:33:21 The LCA was injected and visualized at various angles. OMNIPAQUE, 350 MG, 150ML 150ML used . 10:33:22 HR=55 bpm, DFSP=675/104 mmhg, SpO2=94.0 %, Resp=11 B/min, Pain=0, Lucas=10 After removing the current catheter a PIGTAIL ANG. INFINITI CATHETER FR 5 was advanced over a W PATI, 3MMJ .035 10:35:15 180CM 180CM. 10:35:22 HR=56 bpm, LISU=269/104 mmhg, SpO2=94.0 %, Resp=13 B/min, Pain=0, Lucas=10 10:37:21 HR=58 bpm, JNPM=324/105 mmhg, SpO2=95.0 %, Resp=13 B/min, Pain=0, Lucas=10 10:38:15 Catheter was removed 10:39:24 HR=56 bpm, IHOQ=060/104 mmhg, SpO2=95.0 %, Resp=3 B/min, Pain=0, Lucas=10, Hdez=2 10:39:38 Sheath removed; pressure applied to access site. T ANIBAL Assessment: Final Case, HR=56 BPM, Rhythm=REG, DJRS=083/104 mmhg, Chest Pain=0, Edema=None, Color=Normal, Skin = Warm Right Pulses: Norman Ped=2, Femoral=2 Left Pulses: Norman Ped=2, Femoral=2 10:39:45 Lower Right Extremities: Color=Normal Lower Left Extremities: Color=Normal Neurological: State=Alert, Ox3, MIRANDA Respiration: Resp=19 B/min, SpO2=97 % 10:40:33 Catheter(s) removed without difficulty 10:40:37 Case End 10:40:39 Sterile dressing applied to site 10:40:40 No case complications noted. 10:40:44 Cine recording checked. 10:41:23 HR=55 bpm, STNV=094/102 mmhg, SpO2=96.0 %, Resp=10 B/min, Pain=0, Lucas=10, Hdez=2 10:43:24 HR=58 bpm, KIYI=691/112 mmhg, SpO2=96.0 %, Resp=14 B/min, Pain=0, Lucas=10, Hdez=2 10:45:25 HR=56 bpm, WYYX=050/125 mmhg, SpO2=96.0 %, Resp=22 B/min, Pain=0, Lucas=10, Hdez=2 10:46:46 Bedside Report will be given. 10:46:49 Contrast Scanned 10:47:19 A Left Heart Cath was performed. 10:47:25 HR=58 bpm, HVHI=900/115 mmhg, SpO2=96.0 %, Resp=8 B/min, Pain=0, Lucas=10, Hdez=2 10:50:07 HR=58 bpm, CCAL=392/110 mmhg, SpO2=96.0 %, Resp=14 B/min, Pain=0, Lucas=10, Hdez=2 10:51:29 HR=56 bpm, ZTQT=088/113 mmhg, SpO2=96.0 %, Resp=16 B/min, Pain=0, Lucas=10, Hdez=2 10:53:28 HR=56 bpm, BBHS=897/107 mmhg, SpO2=97.0 %, Resp=16 B/min, Pain=0, Lucas=10, Hdez=2 10:55:21 HR=56 bpm, VDIE=525/108 mmhg, SpO2=98.0 %, Resp=10 B/min, Pain=0, Lucas=10, Hdez=2 10:57:23 HR=54 bpm, NAXY=026/106 mmhg, SpO2=98.0 %, Resp=14 B/min, Pain=0, Lucas=10, Hdez=2 10:59:51 Sheath removed; pressure applied to access site. 10:59:56 Case End 10:59:59 Sterile dressing applied to site 11:00:06 No case complications noted. 11:00:11 HR=52 bpm, PAZG=290/112 mmhg, SpO2=98.0 %, Resp=11 B/min, Pain=0, Hdez=2 11:00:42 Cine recording checked. 11:01:41 Bedside Report will be given. 11:01:44 Holding Area notified of successful diagnostic cath. End Study - Contrast Media Used In Study Contrast Total Opened (mL) Total Used (mL) Total Wasted (mL) Omnipaque 60 60 0 End Study - Maximum Contrast Load Max Contrast Load (mL) 389.6 End Study - Radiation Exposure Fluoro Time (minutes) 10.1 End Study - Sheaths Sheaths Pulled By Sheath Hold Time (min) Etelvina Barnett End Study - Patient Disposition Complications Transferred To Interventional Outcome No Outpatient Bed No attempt made
--- NOTE | 2017-01-29 11:22 | MA ---
cc: FRANCISCO WAY DO DATE: 01/29/2017 PROCEDURE 1. Coronary angiogram. 2. Moderate sedation, 30 minutes. PREPROCEDURE DIAGNOSIS 6.4 cm ascending aortic aneurysm for CT surgery. POSTPROCEDURE DIAGNOSIS 1. Ascending aortic aneurysm. 2. Coronary artery disease. MEDICATIONS Versed 0.5 mg, fentanyl 25 mcg. CONTRAST USED 60 cc. FLUOROSCOPY TIME 10.1 minutes. SEDATION Moderate sedation, 30 minutes. ESTIMATED BLOOD LOSS 10 cc. PROCEDURAL SUMMARY Jaxon Peguero is a pleasant 71-year-old male who sees my partner, Dr. Sol, in the office, and was found to have a large 6.4 cm ascending aortic aneurysm. Because of this he was recommended cardiac catheterization preoperatively before seeing cardiothoracic surgery. The risks, benefits and alternatives were explained to him and he consented as such. He was brought to the lab and prepped in the usual sterile fashion. The right femoral artery was accessed using a modified Seldinger technique and placement of a 5 Indonesian sheath. This was easily aspirated and flushed. A JR4 was advanced over a J-wire to the ascending aorta and used for selective angiography of the right coronary artery. This was exchanged out for a JL5 and then a JL6 of which neither could engage the left main. A multipurpose was then used to engage into the left main for selective angiography of the left coronary arteries. Finally this was exchanged out for an angled pigtail but I was unable to get into the left coronary cusp to cross the valve. The pigtail was removed at that time. The sheath was removed and pressure was held for hemostasis. FINDINGS Left Main: Normal size vessel with adequate reflux and no significant disease. It bifurcates into an LAD and circumflex. LAD: Normal size vessel with a 60-70% lesion in the proximal portion as well as a 90% lesion in the ipe-ef-iicnbs portion with the distal portion of the vessel having adequate runoff. It gives off one major diagonal which is overall small and bifurcates into an upper and lower branch with no significant disease. Left Circumflex: Normal size vessel with mild luminal irregularities in the midportion. It gives off three obtuse marginals with the first being relatively high and almost to the point of being a ramus. All three obtuse marginals have mild tortuosity but no significant disease. RCA: Anterior takeoff. There is a 20% lesion in the proximal portion. Otherwise no significant disease. It is a dominant vessel and supplies a PDA as well as three posterolateral branches. IMPRESSION 1. A 6.4 cm ascending aortic aneurysm for CT surgery. 2. Coronary artery disease with significant disease in the LAD as above. RECOMMENDATIONS 1. Mr. Peguero will see Dr. Corbett in [place] for consideration of cardiothoracic surgery for his aneurysm as well as possible bypass of his LAD. 2. He will be given his films so these can be reviewed by Dr. Corbett. 3. He will follow-up with Dr. Sol for his other cardiovascular needs. 4. Blood pressure was noted to be elevated, will plan on starting him on Lisinopril 5mg daily. Thank you for allowing me to see Jaxon Peguero. If there are any questions, please do not hesitate to call. Francisco Way DO VGP/BT /10:57 AM /11:10 AM MTDD
[2017-01-29] MEDS ORDERED: METF500T PO (11:23)
[2017-01-29] MEDS ORDERED: LISI-519 PO (11:23)
[2017-01-29] MEDS ORDERED: MISC INFORMATION XX ONE (12:30)
--- NOTE | 2017-01-29 21:23 | EKG ---
Date Performed: 01/29/2017 Time Performed: 08:15:50 PTAGE: 71 years EKG: Sinus rhythm with 1st degree A-V block. Left axis deviation Inferior infarct - age undetermined Abnormal ECG PREVIOUS TRACING : 12/26/2016 10.17 Compared to prior tracing no significant change DOCTOR: Art Adam Interpretating Date/Time 01/29/2017 21:21:48
== END 2017-01-29 15:43 | disposition home or self-care (01) ==
LOC: HCAT 07:33 → HDIC 07:34 → HCAT 15:43
PROVIDERS: ATTEND Internal Medicine Cardiovascular Disease
DX: I25.10 Atherosclerotic heart disease of native coronary artery without angina pectoris (principal); I71.2 Thoracic aortic aneurysm, without rupture; R01.1 Cardiac murmur, unspecified; E11.9 Type 2 diabetes mellitus without complications; Z79.84 Long term (current) use of oral hypoglycemic drugs
CPT/HCPCS: 80048; 85025; 85610; 85730; 93005; 93454; 99152; 99153; C1769; C1893; J1644; J2250; J3010; Q9967

== ENCOUNTER → 2017-05-28 | Outpatient (CLI) | payer MEDICARE, OTHER ==
[~2017-05-28] MED LIST changes: +ASPI1TAB57 PO; +LISI-519 PO; +METO50TA PO; +TOPR25TA PO
[2017-05-28 10:49] LABS: AUTOMATED NEUTROPHIL # 3.1 TH/MM3 (1.8-7.7); BASOPHIL % 0.5 % (0.0-2.0); EOSINOPHIL # 0.4 TH/MM3 (0-0.4); EOSINOPHIL % 6.4 % (0.0-4.0); HEMATOCRIT 42.5 % (39.0-51.0); HEMOGLOBIN 14.5 GM/DL (13.0-17.0); MEAN CELL VOLUME 84.5 FL (80.0-100.0); MEAN CORPUSCULAR HEMOGLOBIN 28.8 PG (27.0-34.0); MEAN CORPUSCULAR HGB CONC 34.1 % (32.0-36.0); MEAN PLATELET VOLUME 8.3 FL (7.0-11.0); MONO % 6.6 % (0.0-8.0); MONOCYTE # 0.4 TH/MM3 (0-0.9); NEUT % 52.5 % (16.0-70.0); PLATELET COUNT 145 TH/MM3 (150-450); RED BLOOD COUNT 5.03 MIL/MM3 (4.50-5.90)
[2017-05-28 10:54] LABS: INTERNATIONAL NORMALIZED RATIO 1.1 RATIO; PROTHROMBIN TIME - PATIENT 10.7 SEC (9.8-11.6)
[2017-05-28 11:03] LABS: BILIRUBIN, URINE NEG (NEG); BLOOD, URINE NEG (NEG); GLUCOSE,URINE NEG (NEG); KETONE, URINE NEG (NEG); NITRITE,URINE NEG (NEG); PH, URINE 6.5 (5.0-8.5); URINE COLOR LIGHT-YELLOW (YELLW/STRAW); URINE LEUKOCYTE ESTERASE NEG (NEG)
[2017-05-28 11:06] LABS: CALCIUM 9.7 MG/DL (8.5-10.1); CREATININE 1.13 MG/DL (0.60-1.30)
--- NOTE | 2017-05-28 11:34 | RADRPT ---
EXAM DATE/TIME: 05/28/2017 11:03 [facility] COMPARISON: No previous studies available for comparison. INDICATIONS : Evaluate for pneumonia, pneumothorax and communicable diseases. Pre-op left knee surgery. MEDICAL HISTORY : Diabetes mellitus type I. SURGICAL HISTORY : 2 heart valve surgery 03/17. ENCOUNTER: Initial ACUITY: 1 day PAIN SCORE: 0/10 LOCATION: Bilateral chest FINDINGS: PA and lateral views of the chest demonstrate the lungs to be symmetrically aerated without evidence of mass, infiltrate or effusion. Previous median sternotomy and mitral valve replacement. Tortuous t horacic aorta The cardiomediastinal contours are unremarkable. Osseous structures are intact. CONCLUSION: 1. Mitral valve replacement. 2. Clear lungs. Prashanth Rangel MD on May 28, 2017 at 11:32 Board Certified Radiologist. This report was verified electronically.
== END ==
LOC: CPRE 09:58
PROVIDERS: ATTEND Orthopaedic Surgery
DX: Z01.812 Encounter for preprocedural laboratory examination (principal); Z01.811 Encounter for preprocedural respiratory examination; S83.232D Complex tear of medial meniscus, current injury, left knee, subsequent encounter
CPT/HCPCS: 36415; 71046; 80048; 81001; 85025; 85610

== ENCOUNTER → 2017-06-07 | Day surgery (SDC) | payer MEDICARE, OTHER ==
--- NOTE | 2017-05-31 17:51 | MH ---
cc: Zachariah Haskins MD DATE OF ADMISSION: 06/07/2017 ADMITTING DIAGNOSES: Complex tear medial meniscus, left knee. Mild osteoarthritis, left knee. Pain, left knee. HISTORY OF PRESENT ILLNESS: The patient is a 72-year-old white male who experienced pain of his left knee of at least 1-1/2 years duration. He had associated the onset of his symptoms with a twisting type stress, which occurred while he was visiting in [place]. He did not fall nor was there any direct injury to his knee at that time. He became symptomatic with soreness, especially involving the medial aspect of his left knee, for which he conformed to conservative management, which include some type of an ultraviolet light treatment that he had available at home and thereafter began wearing an elastic knee support. He was reluctant to utilize any type of medication for his symptoms. He later underwent medical evaluation with his primary care physician, who encouraged the patient to proceed with an MRI scan, subsequent diagnostic testing was completed and the patient presented to the undersigned physician for further disposition. He was seen in the office initially in 11/2016 and at that time, the findings of his scan were reviewed, which identified a complex degenerative tear with horizontal cleavage component extending from the body into the posterior horn of the medial meniscus. There was thickening of the medial collateral ligament and adjacent edema, mild tricompartmental osteoarthritis. Findings and treatment options were reviewed with the patient at that time. The patient felt that he was inclined to consider arthroscopic surgery given his failure to respond favorably to the conservative modalities completed. In compliance with his request, he was tentatively scheduled for outpatient surgery in the fall of this past year but prior to that event, his primary care physician recommended that he proceed with cardiac evaluation. Subsequent disposition was completed in this regard and the patient was eventually cleared for operative intervention, for which he returned to the office in May indicating that he had undergone open heart surgery and done well, but during the course of his postoperative cardiac rehabilitation, he was aware of residual soreness about his left knee and thus was desirous of proceeding with arthroscopic surgery as had previously been planned. In compliance with his wishes, he has been schedules for admission at this time in order that the above be accomplished. PAST MEDICAL HISTORY: HOSPITALIZATIONS AND SURGERIES: Have included appendectomy, colonoscopy, and open heart surgery, which included a pericardial tissue heart valve insertion. He has also been hospitalized for a medical evaluation for upper respiratory congestion. MEDICAL ILLNESSES: Include type 2 diabetes for which he takes metformin 500 mg twice daily. He is also taking an 81 mg aspirin tablet daily and additional medication for hypertension. ALLERGIES: HE DENIES ANY KNOWN DRUG ALLERGIES. REVIEW OF SYSTEMS: He does wear glasses. Denies headache, seizure or syncope. No sinus congestion or epistaxis. There is diminished auditory acuity for which he does utilize hearing aids. No tinnitus. No bleeding gums or dysphagia. He denies cough, shortness of breath, upper respiratory infection or pneumonia. He does have a history of sleep apnea for which he utilized CPAP. No angina. Status post open heart surgery. Appetite is good. Bowel movements are regular. No hepatitis, gallbladder disease, or ulcers. There is a positive history of hemorrhoids. No urinary tract infection. No kidney stones. No prostate disease. No history of fractures. He has undergone previous psychiatric evaluation and treatment with a history of PTSD. His remaining review of systems is unremarkable and noncontributory. FAMILY HISTORY: The patient has been approximately 32 years. is 74 years of age, in reasonably good health. He has 4 sons and 3 daughters. These apparently are step children, all indicated to be in good health. His family history is positive for ALS, stroke, diabetes, heart disease and cancer of the GI and renal systems. SOCIAL HISTORY: The patient completed a high school education with college credits thereafter. 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 He admits to routine use of marijuana. Denies ethanol consumption. PHYSICAL EXAMINATION: VITAL SIGNS: Height 5 feet 9 inches, weight 196 pounds. GENERAL: An alert, oriented and responsive 72-year-old white male,who sits quietly upon the examination table with no obvious distress. HEAD, EARS, EYES, NOSE AND THROAT: Pupils are equally round and reactive to light. Extraocular movements full. Sclerae clear. External nares clear. External auditory canals clear. Dental intact. Mucous membranes pink and moist. Pharynx clear. NECK: Supple. Active range of motion without appreciable pain. Carotid pulse palpable bilaterally. Trachea midline. Thyroid without enlargement. LUNGS: Clear to auscultation and percussion. BACK: No CVA tenderness. No discomfort throughout the dorsal lumbar spine. HEART: Regular rhythm. No murmur or gallop. ABDOMEN: Soft, nontender, bowel sounds present. RECTAL: Per primary care physician. EXTREMITIES: Left knee: No significant swelling or effusion. There is medial joint line tenderness without palpable deformity. Apprehension and compression sign are negative. There is limited mobility at the extreme of flexion without crepitation. No collateral ligamentous instability. Asaf test and drawer sign negative. Pivot shift and Canelo signs positive for medial compartment pain. Straight leg raising unremarkable to 80 degrees and dependent gait. NEUROLOGIC: Cranial nerves II-XII grossly intact. IMPRESSION: Complex tear of medial meniscus, left knee; mild osteoarthritis, left knee; pain, left knee. PLAN: Arthroscopic surgery, left knee; possible arthrotomy. The nature of the planned surgical procedure, the potential complications and risks associated; the expectations of surgery and the consent form were thoroughly reviewed with the patient in the presence of his prior to admission to the hospital. Pierre has indicated his full understanding regarding all of the above and given consent to proceed with treatment as outlined. Medical evaluation and clearance for surgery will be completed by his primary care physician, Dr. Claude Hayward. MD MARYURI Valdez/MATT , 02:38 PM , 05:49 PM
[~2017-06-07] VITALS: Ht 175.3 cm; Wt 89.9 kg
[~2017-06-07] MED LIST changes: +ACETAMINOPHEN 1000 MG/100 ML 100 ML IV ONE; +ACETAMINOPHEN/HYDROcodone 325 MG/5 MG TAB PO PRN; +CHLORHEXIDINE GLUCONATE 2 % 1 PACK (2 CLOTHS) TOPICAL PRN; +DO NOT ADM ANY ANTICOAGULANT DRUGS PRN; +FAMOTIDINE 20 MG/2 ML VIAL ONE; +GLYCOPYRROLATE 1 MG/5 ML SYRINGE IV PUSH ONE; +INSULIN HUMAN REGULAR 1,000 UNITS/10 ML VIAL SQ PRN; +KETOROLAC TROMETHAMINE 30 MG/ML (IVP) VIAL IV PUSH ONE; +LACTATED RINGER'S 1000 ML INJ 1,000 ML IV ONE; +LIDOCAINE HCL 1% PF 5 ML SYRINGE OTHER ONE; +LIDOCAINE HCL 2% PF 10 ML VIAL ONE; -LISI-519 PO; +METOPROLOL TARTRATE 25 MG TAB PO PRN; +MIDAZOLAM HCL 2 MG/2 ML VIAL ONE; +MORPHINE SULFATE 10 MG/ML INJ IM PRN; +ONDANSETRON HCL 4 MG/2 ML VIAL IV ONE; +POVIDONE IODINE 5% (ANTISEPSIS KIT) 4 APPLICATIONS EACH NARE PRN; +POVIDONE IODINE 7.5% SCRUB 118 ML BOTTLE TOPICAL SCH; +PROMETHAZINE INJ 25 MG/ML VIAL IM PRN; +PROPOFOL 200 MG/20 ML AMP IV ONE; +SODIUM CHLORID 0.9% 500 ML IV PRN; -TOPR25TA PO; +TRIAMCINOLONE ACETONIDE 40 MG/ML VIAL I-ARTICULR ONE; +ceFAZolin 2 GM PREMIX 50 ML IV SCH
[2017-06-07] MEDS: LACTATED RINGER'S 1000 ML IV PRN ×2 (06:40→08:59)
--- NOTE | 2017-06-07 10:45 | MP ---
cc: Zachariah Haskins MD DATE OF OPERATION: 06/07/2017 PREOPERATIVE DIAGNOSIS: Complex tear of the medial meniscus left knee, mild osteoarthritis left knee, pain left knee. POSTOPERATIVE DIAGNOSIS: Complex tear of the medial meniscus left knee, mild osteoarthritis left knee, pain left knee including chondromalacia patella left knee. PROCEDURE: Partial medial meniscectomy left knee, debridement of medial compartment and chondroplasty of the patellofemoral joint. SURGEON: Zachariah Haskins MD ANESTHESIA: General by LMA. FORMAT: Following the induction of satisfactory general anesthesia by LMA insertion as completed per the department of anesthesia, examination of the left knee revealed a satisfactory range of motion with no appreciable ligamentous instability. The extremity proper was positioned into the surgical scrub technologist knee norman, prepped with Betadine solution and draped into a sterile field in the routine manner. Prior to initiation of the actual procedure, the standard time-out protocol was completed. All parameters were appropriately addressed and confirmed by operating room personnel. Arthroscopic instrumentation was introduced through a stab wound utilizing cannula with sharp and blunt trocar, the inflow irrigation by way of a medial suprapatellar portal, the arthroscope through a lateral parapatellar portal and a probe through a medial parapatellar portal. Examination of the suprapatellar pouch revealed a mild degree of proliferative synovitis. The patellofemoral articulation demonstrated a more advanced degenerative change consistent with localized chondromalacia. Within the medial compartment, a degenerative tear involving the posterior horn of the medial meniscus was noted, as well as associated degenerative changes along the articular surface of the femoral condyle and the tibial plateau. The anterior cruciate ligament was identified and noted to be intact. Examination of the lateral compartment was essentially unremarkable for evidence of internal derangement. Attention was redirected to the medial compartment. Utilizing a 3.8 mm saber resector, a partial medial meniscectomy was accomplished as well as generalized debridement of the medial compartment. The instrument was thereafter oriented into the patellofemoral articulation where a generalized chondroplasty of the patellofemoral joint was completed. Thereafter the joint space was thoroughly lavaged and suctioned dry. An intraarticular Kenalog/Lidocaine injection was completed. The portal sites were reapproximated with Steri-Strips over which Xeroform gauze and bulky dry sterile dressings were placed. Anesthesia was discontinued and the patient thus transferred to a hospital stretcher and returned to the recovery room in satisfactory condition having tolerated his operative procedure well. The estimated blood loss was less than 10 mL. MD MARYURI Valdez/JOSE , 09:54 AM , 10:43 AM
[2017-06-07 11:42] VITALS: BP 151/99; PULSE 54; RESP 18; TEMP 97.9; O2SAT 97
== END | disposition home or self-care (01) ==
LOC: HSDC 05:55
PROVIDERS: ATTEND Orthopaedic Surgery
DX: S83.232A Complex tear of medial meniscus, current injury, left knee, initial encounter (principal); M17.12 Unilateral primary osteoarthritis, left knee; I10 Essential (primary) hypertension; E11.9 Type 2 diabetes mellitus without complications; Z79.82 Long term (current) use of aspirin; Z79.84 Long term (current) use of oral hypoglycemic drugs
CPT/HCPCS: 01400; 29881; J0131; J0690; J1885; J2250; J2405; J3010; J3301; J7120